=== PATIENT | female | born 1990 | race Caucasian/White ===

== ENCOUNTER → 2020-04-19 14:38 | Outpatient (BNVA) | payer OTHER, MEDICAID, SELFPAY | PROVIDERS: Family Provider Nurse Practitioner; PCP Nurse Practitioner Family; Visit Provider Obstetrics & Gynecology | DX: O09.521 Supervision of elderly multigravida, first trimester (principal); I10 Essential (primary) hypertension; R13.10 Dysphagia, unspecified | CPT/HCPCS: 80053; 80307; 84315; 84443; 85027; 86592; 86762; 86803; 86850; 86900; 87340 ==

== ENCOUNTER 2020-04-21 14:53 | Outpatient (CLI) | payer OTHER, MEDICAID, SELFPAY ==
[2020-04-21 15:18] LABS: Total Volume, Urine 1550 mL
[2020-04-21 15:55] LABS: Total Protein 24 Hour Urine 91.5 mg/24HR (0-150); Urine Total Protein 24 Hour 5.9 mg/dL (0-150)
== END 2020-04-21 14:54 | disposition home or self-care (01) ==
PROVIDERS: PCP Nurse Practitioner Family; Visit Provider Obstetrics & Gynecology
DX: I10 Essential (primary) hypertension (principal)
CPT/HCPCS: 84156

== ENCOUNTER → 2020-05-08 09:20 | Outpatient (BNVA) | payer OTHER, MEDICAID, SELFPAY | PROVIDERS: PCP Nurse Practitioner Family; Visit Provider Obstetrics & Gynecology | DX: O09.521 Supervision of elderly multigravida, first trimester (principal); O10.919 Unspecified pre-existing hypertension complicating pregnancy, unspecified trimester; O10.911 Unspecified pre-existing hypertension complicating pregnancy, first trimester; O99.611 Diseases of the digestive system complicating pregnancy, first trimester; K21.9 Gastro-esophageal reflux disease without esophagitis; O21.9 Vomiting of pregnancy, unspecified; Z3A.12 12 weeks gestation of pregnancy | CPT/HCPCS: 84315; 87491; 87591; 88175 ==

== ENCOUNTER → 2020-08-24 08:57 | Outpatient (BNVA) | payer OTHER, MEDICAID, SELFPAY | PROVIDERS: PCP Nurse Practitioner Family; Visit Provider Nurse Practitioner Women's Health | DX: Z34.90 Encounter for supervision of normal pregnancy, unspecified, unspecified trimester (principal) | CPT/HCPCS: 82950; 84315; 85027 ==

== ENCOUNTER → 2020-08-30 08:04 | Outpatient (BNVA) | payer OTHER, MEDICAID, SELFPAY | PROVIDERS: PCP Nurse Practitioner Family; Visit Provider Obstetrics & Gynecology | DX: R73.09 Other abnormal glucose (principal) | CPT/HCPCS: 82951; 82952 ==

== ENCOUNTER → 2020-09-06 13:16 | Outpatient (BNVA) | payer OTHER, MEDICAID, SELFPAY | PROVIDERS: PCP Nurse Practitioner Family; Visit Provider Obstetrics & Gynecology | DX: Z34.90 Encounter for supervision of normal pregnancy, unspecified, unspecified trimester (principal) | CPT/HCPCS: 81000 ==

== ENCOUNTER 2020-09-19 12:03 | Outpatient (CLI) | payer OTHER, MEDICAID, SELFPAY ==
[2020-09-19 12:19] VITALS: BP 155/80; PULSE 70
[2020-09-19 12:30] VITALS: BMI 36.3
[2020-09-19 12:35] VITALS: BP 144/84; PULSE 70
[2020-09-19 12:47] VITALS: RESP 16; TEMP 36.9
[2020-09-19 12:50] VITALS: BP 141/80; PULSE 69
--- NOTE | 2020-09-19 16:16 | P.PCN_ITS ---
Procedure/Consent Procedure Narrative: NONSTRESS TEST: Place of test: [facility] [place]-L&D Indication: Chronic hypertension Date and time of test: 09/19/2020, 12:24 PM Baseline: 135 Variability: Moderate Accelerations: Present Decelerations: None Tocometry: no Contractions INTERPRETATION: NST reactive , continue kick counts
--- NOTE | 2020-09-19 16:16 | PM.ACPR ---
Procedure/Consent Procedure Narrative: NONSTRESS TEST: Place of test: [facility] [place]-L&D Indication: Chronic hypertension Date and time of test: 09/19/2020, 12:24 PM Baseline: 135 Variability: Moderate Accelerations: Present Decelerations: None Tocometry: no Contractions INTERPRETATION: NST reactive , continue kick counts
== END 2020-09-19 12:56 | disposition home or self-care (01) ==
LOC: OPOB 12:10 → OBGYN 12:10
PROVIDERS: PCP Nurse Practitioner Family; Visit Provider Obstetrics & Gynecology
DX: O16.3 Unspecified maternal hypertension, third trimester (principal); Z3A.31 31 weeks gestation of pregnancy
CPT/HCPCS: 12345; 59025; 84315

== ENCOUNTER 2020-09-27 15:20 | Outpatient (CLI) | payer OTHER, MEDICAID, SELFPAY ==
[2020-09-27 15:20] VITALS: BMI 36.8
--- NOTE | 2020-09-27 15:25 | PM.ACPR ---
NST (Non-Stress Test) NST : 4 Para: 2,012 Due date: 11/15/20 Gestational age (weeks): 33 Indications: Chronic hypertension complicating in third trimester at 33-0/7 weeks gestation Test: NST Time: 15:28 Length of test in Minutes: 50 Contractions: Occasional Fetus Fetus 1: Baseline FHR BMP:: 130 Variability: Moderate Accelerations: Present Decelerations: None Reacticity: Reactive Interpretation/Plan Interpretation by: Wilfredo White Comments: Reactive NST with occasional contractions. Time Out Is a Time Out required?: No
== END 2020-09-27 16:20 | disposition home or self-care (01) ==
LOC: OPOB 15:26 → OBGYN 09-28 09:23
PROVIDERS: PCP Nurse Practitioner Family; Visit Provider Obstetrics & Gynecology
DX: O26.899 Other specified pregnancy related conditions, unspecified trimester (principal); Z3A.00 Weeks of gestation of pregnancy not specified
CPT/HCPCS: 12345; 59025

== ENCOUNTER 2020-10-04 17:00 | Outpatient (CLI) | payer OTHER, MEDICAID, SELFPAY ==
[2020-10-04] VITALS (14 sets, daily range): BP systolic 162–197; BP diastolic 84–100; PULSE 63–74; RESP 16; O2SAT 97–99; BMI 36.1
--- NOTE | 2020-10-04 17:25 | PM.ACPR ---
NST (Non-Stress Test) NST : 4 Para: 2,012 Due date: 11/15/20 Gestational age (weeks): 34 Indications: Chronic hypertension complicating in third trimester at 34-0/7 weeks gestation Test: NST Time: 17:28 Length of test in Minutes: 45 Contractions: None Fetus Fetus 1: Baseline FHR BMP:: 130 Variability: Moderate Accelerations: Present Decelerations: Variable Reacticity: Reactive Interpretation/Plan Interpretation by: Wilfredo White Comments: Reactive NST with variable deceleration. Biophysical profile was performed with total score of 10 out of 10 with reactive NST and CARRILLO of 14.6 cm. Time Out Is a Time Out required?: No
[2020-10-04] MEDS: dilTIAZem 30 mg Tablet PO (19:51)
[2020-10-04 20:07] LABS: UPRO/UCREAT Ratio 0.09 mg/mg CR; Urine Creatinine 117 mg/dL (28-217); Urine Protein Random 10 mg/dL
== END 2020-10-04 20:50 | disposition home or self-care (01) ==
LOC: OPOB 17:15 → OBGYN 17:16
PROVIDERS: PCP Nurse Practitioner Family; Visit Provider Obstetrics & Gynecology
DX: O16.9 Unspecified maternal hypertension, unspecified trimester (principal); Z3A.00 Weeks of gestation of pregnancy not specified
CPT/HCPCS: 12345; 59025; 82570; 84156; 84315; 99211

== ENCOUNTER 2020-10-08 09:27 | Outpatient (CLI) | payer OTHER, MEDICAID, SELFPAY ==
[2020-10-08 11:42] LABS: Total Protein 24 Hour Urine 89.9 mg/24HR (0-150); Total Volume, Urine 825 mL; Urine Total Protein 24 Hour 10.9 mg/dL (0-150)
== END 2020-10-08 09:28 | disposition home or self-care (01) ==
LOC: LAB 09:34
PROVIDERS: PCP Nurse Practitioner Family; Visit Provider Obstetrics & Gynecology
DX: O10.919 Unspecified pre-existing hypertension complicating pregnancy, unspecified trimester (principal)
CPT/HCPCS: 84156

== ENCOUNTER 2020-10-11 14:52 | Outpatient (CLI) | payer OTHER, MEDICAID, SELFPAY ==
[2020-10-11 15:07] VITALS: BP 145/71
[2020-10-11 15:22] VITALS: BP 146/68
[2020-10-11 15:34] VITALS: RESP 16; TEMP 37
[2020-10-11 15:42] VITALS: BMI 36.1
[2020-10-11 15:44] VITALS: BP 148/63
--- NOTE | 2020-10-11 16:42 | P.PCN_ITS ---
Procedure/Consent Procedure Narrative: NONSTRESS TEST: Place of test: [facility] [place]-L&D Indication: 29-year-old 4 para 2-0-1-2 at 35 weeks 0 days Date and time of test: 10/11/2020, 3:20 PM Baseline: 140 Variability: Moderate variability Accelerations: Accelerations present Decelerations: No decelerations Tocometry: Irritability present INTERPRETATION: NST reactive, correlate with BPP, continue kick counts
== END 2020-10-11 15:52 | disposition home or self-care (01) ==
LOC: OPOB 14:57 → OBGYN 10-13 08:50
PROVIDERS: PCP Nurse Practitioner Family; Visit Provider Obstetrics & Gynecology
DX: O16.9 Unspecified maternal hypertension, unspecified trimester (principal); Z3A.00 Weeks of gestation of pregnancy not specified
CPT/HCPCS: 12345; 59025; 84315

== ENCOUNTER → 2020-10-17 09:06 | Outpatient (BNVA) | payer OTHER, MEDICAID, SELFPAY | PROVIDERS: PCP Nurse Practitioner Family; Visit Provider Obstetrics & Gynecology | DX: Z34.90 Encounter for supervision of normal pregnancy, unspecified, unspecified trimester (principal) | CPT/HCPCS: 84315; 87081 ==

== ENCOUNTER 2020-10-23 10:54 | Outpatient (CLI) | payer OTHER, MEDICAID, SELFPAY ==
[2020-10-23 11:00] VITALS: BMI 37.0
[2020-10-23 11:24] VITALS: TEMP 36.3
--- NOTE | 2020-10-23 11:24 | US_ITS ---
WS: [id number] BIOPHYSICAL PROFILE HISTORY: chronic htn COMPARISON: 10/17/2020 Cardiac activity: 144 bpm. Cervix: closed. Placenta: Fundal, no previa or abruption. Placenta grade: 2 Parameters are as follows: Breathin Movement: 2 Tone: 2 Fluid volume: 2 Largest vertical pocket of amniotic fluid is 2.6 cm. US/US OB BPP wo NST 56993 IMPRESSION: 1. Biophysical profile score: 8/8. 2. Normal cardiac activity.
[2020-10-23 11:30] VITALS: RESP 18
[2020-10-23 11:31] VITALS: BP 161/73; PULSE 72
[2020-10-23 11:51] VITALS: BP 142/76; PULSE 72
[2020-10-23 12:11] VITALS: BP 136/75; PULSE 73
== END 2020-10-23 12:25 | disposition home or self-care (01) ==
LOC: OPOB 10:57 → OBGYN 11:09
PROVIDERS: PCP Nurse Practitioner Family; Visit Provider Obstetrics & Gynecology
DX: O16.9 Unspecified maternal hypertension, unspecified trimester (principal); Z3A.00 Weeks of gestation of pregnancy not specified
CPT/HCPCS: 59025; 76819; 84315; 99211

== ENCOUNTER → 2020-11-01 10:06 | Outpatient (BNVA) | payer MEDICAID, SELFPAY | PROVIDERS: PCP Nurse Practitioner Family; Visit Provider Obstetrics & Gynecology | DX: Z34.90 Encounter for supervision of normal pregnancy, unspecified, unspecified trimester (principal) | CPT/HCPCS: 80053; 82570; 84156; 84315; 84550; 85025 ==

== ENCOUNTER → 2020-11-03 08:27 | Outpatient (BNVA) | payer MEDICAID, SELFPAY | PROVIDERS: PCP Nurse Practitioner Family; Visit Provider Obstetrics & Gynecology | DX: O09.90 Supervision of high risk pregnancy, unspecified, unspecified trimester (principal); Z20.828 Contact with and (suspected) exposure to other viral communicable diseases | CPT/HCPCS: 87635 ==

== ENCOUNTER 2020-11-07 06:15 | Inpatient (IN) | payer MEDICAID, SELFPAY ==
[2020-11-07] VITALS (94 sets, daily range): BP systolic 122–218; BP diastolic 59–105; PULSE 60–164; TEMP 36.1–37.4; O2SAT 75–100; BMI 38.0
[2020-11-07 07:12] LABS: Eosinophils # 0.1 10^3/uL (0.0-0.8); Eosinophils % 1.4 %; Nucleated Red Blood Cells % 0 %
[2020-11-07 07:23] LABS: Add Urine Microscopic? NO
[2020-11-07] MEDS: oxytocin 30 UNIT/500 ML BAG IV (07:30)
[2020-11-07] MEDS: dextrose 5%-lactated ringers 1,000 ML 999 ML IV (07:30)
[2020-11-07 07:32] LABS: Basophils % 0.2 %; Hematocrit 34.4 % (37.0-47.0); Hemoglobin 11.4 g/dL (11.5-15.3); Lymphocytes # 1.7 10^3/uL (0.8-4.8); Lymphocytes % 20.9 %; Mean Corpuscular HGB Conc 33.1 g/dL (30.0-36.0); Mean Corpuscular Hemoglobin 29.5 pg (28.0-34.0); Mean Corpuscular Volume 89.1 fL (81-99); Monocytes # 0.8 10^3/uL (0.2-0.9); Neutrophils % 66.8 %; Platelet Count 178 10^3/cmm (130-400); Red Blood Count 3.86 10^6/uL (4.1-5.3); Red Cell Distribution Width 14.2 % (12.1-15.1); White Blood Count 8.1 10^3/uL (4.0-10.0)
[2020-11-07 07:33] LABS: Bilirubin Urine Neg (Negative); Blood Urine Neg (Negative); Glucose Urine UA Norm (Normal); Ketones Urine Negative (Negative); Leukocyte Esterase Urine Negative (Negative); Nitrate Urine Negative (Negative); Protein Urine Neg (Negative); Specific Gravity, Urine 1.005 (1.005-1.030); Urine Appearance Clear (CLEAR); Urine Color Yellow (Yellow); Urobilinogen Urine Norm (Negative); pH Urine 7 (5-7)
[2020-11-07 07:39] LABS: Alanine Aminotransferase 9 U/L (0-33); Albumin Level 3.4 g/dL (3.5-5.2); Alkaline Phosphatase 103 IU/L (35-105); Aspartate Amino Transferase 19 U/L (0-32); Blood Urea Nitrogen 7 mg/dL (6-20); Calcium 8.8 mg/dL (8.5-10.5); Carbon Dioxide 22 mmol/L (22-29); Chloride 105 mmol/L (98-107); Globulin 2.8 g/dL (1.3-4.6); Glomerular Filtration Rate 186.2 mL/min (90-130); Glucose 86 mg/dL (65-115); Osmolality Calculated 285 mOsm/kg (285-295); Sodium 139 mmol/L (136-145); Total Bilirubin 0.2 mg/dL (0.15-1.2); Total Protein 6.2 g/dL (6.6-8.7); Uric Acid 4.5 mg/dL (2.4-5.7)
[2020-11-07 07:47] LABS: Urine Creatinine 27 mg/dL (28-217); Urine Protein Random 4 mg/dL
[2020-11-07 08:04] LABS: UPRO/UCREAT Ratio 0.15 mg/mg CR
[2020-11-07] MEDS: labetalol 200 mg Tablet 100 MG PO ×2 (08:48→19:05)
[2020-11-07] MEDS: labetalol 5 mg/mL SDV 20mL 20 MG IVP ×3 (09:00→20:44)
[2020-11-07] MEDS: lactated ringers 1,000 ML 999 ML IV ×2 (10:38→11:50)
--- NOTE | 2020-11-07 12:53 | ANES.PREANE2 ---
Pre-Anesthetic Assessment Pre-Anesthetic Assessment: Height/Weight: Height 1.6 m Weight 97.522 kg Temp Pulse BP Pulse Ox 99.3 F 60 157/73 100 11/07/20 12:13 11/07/20 12:47 11/07/20 12:47 11/07/20 12:40 Was Beta Evin taken within 24 hours: Yes Social: Social History: No alcohol and No tobacco Exam: Pre-Anes Outpt Exam: alert, oriented x 3, clear to auscultation bilaterally and regular rate & rhythm Airway: Submandibular: WNL Cervical ROM: WNL MP: 2 Dentition: Full Anesthetic Plan: ASA status: 2 Other: Labor epidural Risk of > 500 ml blood loss (7ml/kg in children): No Meds/Allergies Current Medications: Current Medications Generic Name Dose Route Start Last Admin Trade Name Freq PRN Reason Stop Dose Admin Dextrose/Lactated Ringer's 1,000 mls @ 125 m ls/hr 11/07/20 06:45 11/07/20 10:38 Dextrose 5%-Lact ated Ringers IV 0 mls/hr .Q8H BRAULIO Infusion Lactated Ringer's 1,000 mls @ 999 m ls/hr 11/07/20 06:40 11/07/20 12:19 Lactated Ringers IV 125 mls/hr .Q1H1M PRN Infusion Per L&D Rescitati on Protocol Oxytocin 30 unit in 500 ml s @ 1 mls/hr 11/07/20 06:45 11/07/20 11:30 Pitocin IV 21 milliunit/min .Q24H BRAULIO 21 mls/hr Titration Protocol 1 MILLIUNIT/MIN Ropivacaine 200 mg in 100 mls @ 13 mls/hr 11/07/20 06:45 11/07/20 12:12 Naropin Premix EPIDURAL 13 mls/hr .Q7H42M BRAULIO Administration Lactated Ringer's 1,000 mls @ 999 m ls/hr 11/07/20 06:45 11/07/20 11:39 Lactated Ringers IV Infused .Q1H1M PRN Infusion See label comment s Labetalol HCl 20 mg 11/07/20 06:40 11/07/20 09:00 Labetalol 5 Mg/M l Sdv 20ml IVP 20 mg PRN PRN Administration HYPERTENSION Protocol Labetalol HCl 100 mg 11/07/20 09:00 11/07/20 08:48 Labetalol 200 Mg Tablet PO 100 mg BID BRAULIO Administration PFSH Anesthesia PFSH: Medical History Chronic hypertension Gestational hypertension with her second in 2018 which required labetalol for about 6 months . She states that her blood pressures returned to normal and she has not been on any medication since then-has not really been monitoring her blood pressure since then. No pertinent past medical history Patient denies any past medical history of diabetes, heart, lung, liver, kidney, thyroid, bleeding, or clotting problems. Surgical History History of tympanostomy tube placement As a child Family History Grandmother Diabetes Maternal Hyperlipidemia maternal Hypertension maternal Mother Anesthesia complication Breast cancer Diagnosed with breast cancer at the age of 38 in 1998. She later of leukemia in 2005 DVT (deep venous thrombosis) Her mother had a blood clot in her leg while on control pills and this was shortly before she was diagnosed with breast cancer. Hypertension Family/Other Hypertension Maternal uncle Denies family history of Cervical cancer Colon cancer Ovarian cancer Pulmonary embolism Uterine cancer Social History Smoking and tobacco status: never smoked Alcohol intake: never Marital status: Female Reproductive History: : 4 Data Anesthesia CBC & Chem 7: 11/07/20 06:50 11/07/20 06:50 Other Labs: Laboratory Results - last 48 hr 11/07/20 11/07/20 11/07/20 06:50 06:50 06:50 WBC 8.1 RBC 3.86 L Hgb 11.4 L Hct 34.4 L MCV 89.1 MCH 29.5 MCHC 33.1 RDW 14.2 Plt Count 178 MPV 11.0 H Neut % (Auto) 66.8 Lymph % (Auto) 20.9 [place] % (Auto) 10.0 Eos % (Auto) 1.4 Baso % (Auto) 0.2 Neut # (Auto) 5.40 Lymph # (Auto) 1.7 [place] # (Auto) 0.8 Eos # (Auto) 0.1 Baso # (Auto) 0.0 Nucleated RBC % (auto) 0 Nucleated RBCs # 0.0 Sodium 139 Potassium 4.0 Chloride 105 Carbon Dioxide 22 Anion Gap 16.0 BUN 7 Creatinine 0.4 L GFR Calculation 186.2 H Glucose 86 Calculated Osmolality 285 Uric Acid 4.5 Calcium 8.8 Total Bilirubin 0.2 AST 19 ALT 9 Alkaline Phosphatase 103 Total Protein 6.2 L Albumin 3.4 L Globulin 2.8 Urine Color Urine Appearance Urine pH Ur Specific Freeman Urine Protein Urine Glucose (UA) Urine Ketones Urine Blood Urine Nitrate Urine Bilirubin Urine Urobilinogen Ur Leukocyte Esterase U Random Total Protein 4 Urine Creatinine 27 L Protein/Creatinin Ratio 0.15 11/07/20 06:50 WBC RBC Hgb Hct MCV MCH MCHC RDW Plt Count MPV Neut % (Auto) Lymph % (Auto) [place] % (Auto) Eos % (Auto) Baso % (Auto) Neut # (Auto) Lymph # (Auto) [place] # (Auto) Eos # (Auto) Baso # (Auto) Nucleated RBC % (auto) Nucleated RBCs # Sodium Potassium Chloride Carbon Dioxide Anion Gap BUN Creatinine GFR Calculation Glucose Calculated Osmolality Uric Acid Calcium Total Bilirubin AST ALT Alkaline Phosphatase Total Protein Albumin Globulin Urine Color Yellow Urine Appearance Clear Urine pH 7 Ur Specific Freeman 1.005 Urine Protein Neg Urine Glucose (UA) Norm Urine Ketones Negative Urine Blood Neg Urine Nitrate Negative Urine Bilirubin Neg Urine Urobilinogen Norm Ur Leukocyte Esterase Negative U Random Total Protein Urine Creatinine Protein/Creatinin Ratio Cardiac Studies: No Data to Display
--- NOTE | 2020-11-07 12:55 | ANES.PROC ---
Anesthesia Procedures Procedure/Date: 11/07/20 Epidural: Time Out Performed: Yes Consents Signed: Procedure Consent Consent: requested by attending/covering physician, from patient and risks and benefits reviewed Lumbar Level: L3-L4 Epidural position: sitting Epidural procedure: sterile prep of area, 1% lidocaine to numb the area, 18 g needle, negative for paresthesia passed, test dose given, 1.5% xylocaine 1:200k epi, placed PCEA, no systemic response, sterile dressing applied and 0.2% Ropiavacaine @ mls/hr (13) Additional Comments: CARL at 7cm cath at 12cm.
[2020-11-07] MEDS: dextrose 5%-lactated ringers 1,000 ML 125 ML IV (19:51)
--- NOTE | 2020-11-07 23:33 | P.PCNOB_ITS ---
Delivery Note: Date of delivery: November 07, 2020 Pre-delivery diagnoses: 1. Chronic hypertension complicating in third trimester 2. at 38-6/7 weeks gestation Post-delivery diagnoses: 1. Maternal Arrest with 2. Chronic hypertension complicating in third trimester 3. at 38-67 weeks gestation 4. Viable female infant. Procedure: Spontaneous vaginal delivery Op report anesthesia: Epidural Delivering Physician: Wilfredo White MD Estimated blood loss (mL): 0 Pre-Delivery Course: Patient is a 30-year-old 4, para 2-0-1-2 with an LMP of 04/05/2020 and an EDC of 11/15/2020 based on 8-week ultrasound, which placed her at 38-6/7 weeks gestation. She presented to labor and delivery this morning for scheduled induction of labor due to chronic hypertension. She was evaluated for possible preeclampsia and ruled out. She was 40% effaced and 2 cm dilated at -3 station on presentation. She was started on Pitocin this morning. She was continued on 3 Pitocin through the day. At 13:59 she was 50% effaced and 5 cm dilated at -2 station. Artificial rupture membranes was performed at that time with clear fluid present. She was continued on Pitocin. At 15:31 she was noted to be 6 cm dilated. She did not make any further cervical change until approximately 20:00 when she was found to be 8 cm dilated. She then progressed to complete dilation by 21:48. Blood pressure was managed on her scheduled oral labetalol and then intermittent doses of IV labetalol. Baby was reassuring during the labor course. She had had epidural placed earlier in the day. Delivery: Patient started pushing at 21:57 and delivered at 22:01 as a spontaneous vaginal delivery of an occiput anterior female over an intact perineum under epidural anesthesia. Following delivery of the 's head, no nuchal cords were noted. The right hand was delivering adjacent to the left cheek. The arm was swept out. The rest the baby delivered atraumatically with the right arm anterior. was placed on the mother's abdomen where the cord was clamped and then cut by the father of the baby. Baby was spontaneously crying and was left in the care of the waiting nurses. Pitocin bolus was started. Placenta delivered intact by simple expression at 22:05. As the placenta was delivering, patient reported feeling lightheaded. Almost immediately after delivery of the placenta, patient became unresponsive. At that time she was breathing and heartbeat was present. However, respirations became more shallow and rapid response team was called. Patient had been placed on non-rebreather mask oxygen. Pulse ox was placed. On their arrival, she was having agonal breathing. Code was then managed by the code team. Please see their notes. was eventually called. Suspected cause of was amniotic fluid embolism. FINDINGS 1. Viable female infant with APGARS of 9 at 1 minute and 9 at 5 minutes. 2. 3 vessel cord with no nuchal cord. 3. Normal appearing placenta. Post-Delivery Status: Maternal from suspected amniotic fluid embolism. Infant was in satisfactory condition. Coding Level of Care Code Acute Circular Knitter for Marybeth Brown
--- NOTE | 2020-11-07 23:35 | PM.CCN ---
Critical Care Event Note Critical Care Event Rapid response was called during Mrs. Salinas's delivery of a healthy girl, Miguel Garcia. From information shared with me, she was in the process of delivering the placenta. She was talking and then suddenly said that she was feeling lightheaded and then became unresponsive. No seizure activity was noted. She had been hypertensive previously but this was a known diagnosis for her throughout her . Rapid response was initiated at 2207. I arrived shortly thereafter. Patient initially had sinus tachycardia and hypotension. She had agonal breathing and very pale skin and mucosa. Oxytocin was stopped and fluids were administered. Pulse was subsequently lost and chest compressions were initiated as was bag mask ventilation. She received a dose of epi with return of spontaneous circulation after 1 round of CPR. Sinus tach in the 110s-130s. Blood pressure was 203/105. She was put on a nonrebreather. She was initially moaning but not making direct eye contact or responding to simple commands. She was moving around a bit. Blood sugar was checked and was 78. Heart rate suddenly dropped to rate around 60 then 30, with oxygen saturation around 80% and precipitously dropping blood pressures. She became asystolic and CPR was initiated again. Suspecting amniotic fluid embolus, she had received atropine, Toradol and Zofran. She was intubated. Additional epinephrine was given. After 5 total rounds of epinephrine and high-quality CPR patient remained in asystole. Ultrasound imaging of the heart showed minimal cardiac wall movement. She received an additional few rounds of epinephrine and high-quality CPR. Subsequent ultrasound imaging showed no heart wall movement. During this timeframe I was speaking with Mrs. Salinas's , Matt, updating him on what was going on. Explained that we had not had a pulse for more than 15 minutes and that it was strongly suspected that this was a rare event called amniotic fluid embolism or possibly pulmonary embolism. Understandably I am not sure how much of this he understood, but he was aware of the gravity of the situation. I did further explain that the other doctor in the room was continuing to treat his but that it was becoming less and less likely that she would survive, and if she did she would probably have significant neurological damage related to prolonged resuscitative efforts. Matt was brought into the room and shortly after patient was pronounced at [address] Morley. Autopsy has been requested by Dr. White and myself. Mr. Salinas did consent to this and arrangements have subsequently been made. Cause of at this point in time is felt to be amniotic fluid embolism. Miguel's Apgars were 9 and 9 at 1 and 5 minutes. She had a three-vessel cord. Per ENVIRONMENTAL DIRECTOR, placenta was normal-appearing. Critical Care Time Critical Care Time: Code activated: Yes Critical Care Time (min): 35 Coding Level of Care Code Acute Light Rail Train Operator for Chg Fwd Diagnoses Amniotic fluid embolism in childbirth O88.12 Single live Z37.0 Chronic hypertension affecting O10.919 Pronouncement Note Date and Time of Date of : 11/07/20 Time of : 22:44 Preliminary cause of : Amniotic fluid embolism in childbirth Diagnoses/Contributing Factors (1) Amniotic fluid embolism in childbirth: (2) Single live : (3) Chronic hypertension affecting : Additional Data Confirmation of : no pulse, no respirations, no heart sounds and pupils fixed and dilated Family: at bedside Additional persons at bedside: nursing staff Attending physician: Jaylan Donovan MD Attending/PCP notified?: Attending notified Was code activated?: Yes Autopsy requested?: Yes Advance directives?: No Hospice patient?: No
--- NOTE | 2020-11-08 | ED_ITS ---
HPI - Related Data: : [facility] PFSH: Medical History Chronic hypertension Gestational hypertension with her second in 2018 which required labetalol for about 6 months . She states that her blood pressures returned to normal and she has not been on any medication since then-has not really been monitoring her blood pressure since then. No pertinent past medical history Patient denies any past medical history of diabetes, heart, lung, liver, kidney, thyroid, bleeding, or clotting problems. Surgical History History of tympanostomy tube placement As a child Family History Grandmother Diabetes Maternal Hyperlipidemia maternal Hypertension maternal Mother Anesthesia complication Breast cancer Diagnosed with breast cancer at the age of 38 in 1998. She later of leukemia in 2005 DVT (deep venous thrombosis) Her mother had a blood clot in her leg while on control pills and this was shortly before she was diagnosed with breast cancer. Hypertension Family/Other Hypertension Maternal uncle Denies family history of Cervical cancer Colon cancer Ovarian cancer Pulmonary embolism Uterine cancer Social History Smoking and tobacco status: never smoked Alcohol intake: never Marital status: Female Reproductive History: : 4 Procedures Intubation sedative: Etomidate Mg Given: 20 paralytic: Vecuronium Mg Given: 20 Laryngoscope: Montrell ET Tube Size: 8 Tube Secured Depth (cm): 24 Tube Secured Location: teeth Tube Placement Confirmation: visualized tube passing through cords, equal breath sounds bilaterally, no breath sounds over epigastrium and confirmation by capnometry Patient Tolerated Procedure: well Intubation Complications: none Course Vital Signs: Vital signs: Vital Signs Temperature 97.2 F L 11/07/20 21:53 Pulse Rate 131 H 11/07/20 22:37 Blood Pressure 218/93 11/07/20 22:34 Pulse Oximetry 75 L 11/07/20 22:37 MDM - OB/Uterine Contractions MDM Narrative: Medical decision making narrative: I was called over OB after rapid response. Arrived patient had thready pulses and agonal breaths. She then proceeded to code. I did intubate patient without any difficulties with intubation. Lab Data: Labs: Lab Results 11/07/20 11/07/20 11/07/20 Range/Units 06:50 06:50 06:50 WBC 8.1 (4.0-10.0) 10^3/ uL RBC 3.86 L (4.1-5.3) 10^6/u L Hgb 11.4 L (11.5-15.3) g/dL Hct 34.4 L (37.0-47.0) % MCV 89.1 (81-99) fL MCH 29.5 (28.0-34.0) pg MCHC 33.1 (30.0-36.0) g/dL RDW 14.2 (12.1-15.1) % Plt Count 178 (130-400) 10^3/c mm MPV 11.0 H (7.4-10.4) fL Neut % (Auto) 66.8 % Lymph % (Auto) 20.9 % [place] % (Auto) 10.0 % Eos % (Auto) 1.4 % Baso % (Auto) 0.2 % Neut # (Auto) 5.40 (1.8-7.7) 10^3/u L Lymph # (Auto) 1.7 (0.8-4.8) 10^3/u L [place] # (Auto) 0.8 (0.2-0.9) 10^3/u L Eos # (Auto) 0.1 (0.0-0.8) 10^3/u L Baso # (Auto) 0.0 (0.0-0.1) 10^3/u L Nucleated RBC % (a uto) 0 % Nucleated RBCs # 0.0 /100WBC Sodium 139 (136-145) mmol/L Potassium 4.0 (3.5-5.1) mmol/L Chloride 105 (98-107) mmol/L Carbon Dioxide 22 (22-29) mmol/L Anion Gap 16.0 (5-19) BUN 7 (6-20) mg/dL Creatinine 0.4 L (0.5-0.9) mg/dL GFR Calculation 186.2 H (90-130) mL/min Glucose 86 (65-115) mg/dL Calculated Osmolal ity 285 (285-295) mOsm/k g Uric Acid 4.5 (2.4-5.7) mg/dL Calcium 8.8 (8.5-10.5) mg/dL Total Bilirubin 0.2 (0.15-1.2) mg/dL AST 19 (0-32) U/L ALT 9 (0-33) U/L Alkaline Phosphata se 103 (35-105) IU/L Total Protein 6.2 L (6.6-8.7) g/dL Albumin 3.4 L (3.5-5.2) g/dL Globulin 2.8 (1.3-4.6) g/dL Urine Color (Yellow) Urine Appearance (CLEAR) Urine pH (5-7) Ur Specific Gravit y (1.005-1.030) Urine Protein (Negative) Urine Glucose (UA) (Normal) Urine Ketones (Negative) Urine Blood (Negative) Urine Nitrate (Negative) Urine Bilirubin (Negative) Urine Urobilinogen (Negative) mg/dL Ur Leukocyte Pooja ase (Negative) U Random Total Pro tein 4 mg/dL Urine Creatinine 27 L (28-217) mg/dL Protein/Creatinin Ratio 0.15 mg/mg CR 11/07/20 Range/Units 06:50 WBC (4.0-10.0) 10^3/ uL RBC (4.1-5.3) 10^6/u L Hgb (11.5-15.3) g/dL Hct (37.0-47.0) % MCV (81-99) fL MCH (28.0-34.0) pg MCHC (30.0-36.0) g/dL RDW (12.1-15.1) % Plt Count (130-400) 10^3/c mm MPV (7.4-10.4) fL Neut % (Auto) % Lymph % (Auto) % [place] % (Auto) % Eos % (Auto) % Baso % (Auto) % Neut # (Auto) (1.8-7.7) 10^3/u L Lymph # (Auto) (0.8-4.8) 10^3/u L [place] # (Auto) (0.2-0.9) 10^3/u L Eos # (Auto) (0.0-0.8) 10^3/u L Baso # (Auto) (0.0-0.1) 10^3/u L Nucleated RBC % (a uto) % Nucleated RBCs # /100WBC Sodium (136-145) mmol/L Potassium (3.5-5.1) mmol/L Chloride (98-107) mmol/L Carbon Dioxide (22-29) mmol/L Anion Gap (5-19) BUN (6-20) mg/dL Creatinine (0.5-0.9) mg/dL GFR Calculation (90-130) mL/min Glucose (65-115) mg/dL Calculated Osmolal ity (285-295) mOsm/k g Uric Acid (2.4-5.7) mg/dL Calcium (8.5-10.5) mg/dL Total Bilirubin (0.15-1.2) mg/dL AST (0-32) U/L ALT (0-33) U/L Alkaline Phosphata se (35-105) IU/L Total Protein (6.6-8.7) g/dL Albumin (3.5-5.2) g/dL Globulin (1.3-4.6) g/dL Urine Color Yellow (Yellow) Urine Appearance Clear (CLEAR) Urine pH 7 (5-7) Ur Specific Gravit y 1.005 (1.005-1.030) Urine Protein Neg (Negative) Urine Glucose (UA) Norm (Normal) Urine Ketones Negative (Negative) Urine Blood Neg (Negative) Urine Nitrate Negative (Negative) Urine Bilirubin Neg (Negative) Urine Urobilinogen Norm (Negative) mg/dL Ur Leukocyte Opoja ase Negative (Negative) U Random Total Pro tein mg/dL Urine Creatinine (28-217) mg/dL Protein/Creatinin Ratio mg/mg CR Discharge Plan Discharge Prescriptions: No Action docusate sodium [Colace] 100 mg capsule 100 mg PO DAILY RF: 0 acetaminophen [Tylenol] 325 mg capsule 325 mg PO QID PRN (Reason: Pain) RF: 0 Gummies 400 mcg-35 mg- 25 mg-5 mg tablet,chewable 1 tab PO BID RF: 0 aspirin 81 mg tablet,delayed release (DR/EC) 81 mg PO DAILY Qty: 90 RF: 2 pantoprazole [Protonix] 40 mg tablet,delayed release (DR/EC) 40 mg PO QDAY Qty: 30 RF: 8 ferrous sulfate 325 mg (65 mg iron) tablet 325 mg PO BID RF: 0 calcium carbonate [Tums] 300 mg (750 mg) tablet,chewable 300 mg PO BID PRN (Reason: Heartburn) RF: 0 labetalol 100 mg tablet 100 mg PO BID Qty: 60 RF: 0 Coding Level of Care Code ED Vice President Of Development for Marybeth Brown
--- NOTE | 2020-11-08 03:33 | PC.NURSE ---
2206 - heart rate 67 O2 97% room air 220 - O2 72% rapid response called, non rebreather at 10L/min 220 - General Internist And Physician Leader and code team arrived in room, patient with agonal respirations. 220 - Heart rate 120 weak and thready 2210 - RT reports no pulse and chest compressions initiated. 2212 - compressions paused for pulse check, no pulse detected, compressions resumed. 2213 - Pitocin bolus stopped, Zoll placed on chest, second IV line 18g IV started in right hand, 1 attempt, 1mg epi given, heart rate 72 2214 - Heart rate 114 2215 - compressions paused for rhythm check, heart rate 130 in sinus tachycardia, fluid bolus of LR initiated. automatic blood pressure reading of 203/105, unable to obtain O2 saturation via pulse ox, patient moaning and moving arms. 2216 - bedside blood glucose of 78. 2218 - non-rebreather placed back on patient, O2 80%, heart rate 64, sinus rhythm. 221 - SPO2 80%, atropine 1mg IVP, Ondansetron 4mg IVP, ketorolac 30mg IVP 2220 - heart rate 150 2223 - manual blood pressure 88/58 2224 - Push dose of epi given - 0.1mg epi in 10ml flush 2225 - unable to obtain pulse, compressions initiated, 1mg epi IVP SPO2 68% 2226 - Etomidate 20mg IVP, Vecuronium 10mg IVP, patient intubated by Dr. Morley 2228 - Compressions paused for pulse check, no pulse detected via palpation or doppler, 1mg epi IVP, SPO2 81% compressions resumed 222 - SPO2 83% 2230 - compressions paused for pulse check, no pulse detected via palpation or doppler, compressions resumed. 2231 - 1mg epi IVP 223 - compressions paused for voip technician at bedside, no cardiac movement detected, 1mg epi given IVP, asystole noted on monitor, compressions resumed. 223 - compressions paused for voip technician at bedside, no cardiac movement detected, 1mg epi given IVP, asystole noted on monitor, compressions resumed. 224 - compressions paused for pulse check, no pulse detected via palpation or doppler, 1mg epi IVP, compressions resumed. 224 - compressions paused for voip technician at bedside, no cardiac movement detected, asystole noted on monitor, compressions resumed. 2243 - compressions paused for pulse check, no pulse detected via palpation or doppler, Dr. Morley calls time of .
--- NOTE | 2020-11-08 08:44 | PC.SOCIAL ---
Spoke with receptionist clerk to see if now would be a good time for Marito our [employer] social worker to visit with . Was told now is probably not a good time. Gave my phone number to call when they feel Marito can visit with Spouse.
--- NOTE | 2020-11-08 11:03 | PC.CHAP ---
Pastoral Care Encounter/Spiritual Assessment Type of Contact [] Declined advertising production manager visit [] Patient/Family/Request visit [] Outpatient visit [] Follow-up visit [] Physician referral [] Code/Alert [] Routine visit [] Staff referral [] Actively dying [] Patient sleeping [x] Family support [x] [] Out of room [] Palliative care [] [] Receiving care in room [] Pre-surgical visit [] Trauma [] Long length of stay [] ICU visit [] Other: Patient , checking on family. Relational/Emotional Strength [] Patient feels connected with others/family/visitors/staff [] Distress [] Loneliness/isolation [] Abandonment Spirituality of Patient [] Person of Jessica [] Attends Religious of their Jessica [] Believes in Prayer [] Reads Bible or Gnosticism materials [] There are Spiritual issues to be addressed Campus Executive Director Interventions [x] Prayer [x] Active listening [x] Non-anxious presence [x] Spiritual/emotional support [x] Crisis/trauma care [] Spiritual counseling [x] Bereavement support [] Provided bereavement packet [] Provided Bible/devotional materials [] Provided toy/stuffed animal, coloring book to patient or family member [] Provided Communion [] Anointing/[place] [] Salvation [] Completed spiritual assessment [] Other: Impact on Illness or Injury [] Angry [] Fearful [] Anxious [] Often cries [] Exhaustion [] Unable to work [] Unable to attend zoroastrian [] Unable to walk/stand [] Unable to read [] Unable to drive [] Unable to eat/drink [] Unable to sleep [] Unable to be with family [] Patient intubated [] Other: Summary Campus Executive Director checked on patient's family, not present but will return later today. several family members gathered in room to support new born and patient's . Family expressed gratitude to chaplains that ministered to them last night. ( R[place] ) Family said they were amazing and very helpful. Family asphalt blender was called and was present for several hours with family. Campus Executive Director expressed his deepest condolences and inquired if family needed anything, nothing at this time. Campus Executive Director prayed with family. Time spent with patient 15 min
--- NOTE | 2020-11-08 11:21 | PC.CHAP ---
Pastoral Care Encounter/Spiritual Assessment Type of Contact [] Declined structural steel ironworker visit [] Patient/Family/Request visit [] Outpatient visit [] Follow-up visit [] Physician referral [] Code/Alert [] Routine visit [] Staff referral [] Actively dying [] Patient sleeping [x] Family support [x] [] Out of room [] Palliative care [] [] Receiving care in room [] Pre-surgical visit [x] Trauma [] Long length of stay [] ICU visit [x] Other: called in to support family. Relational/Emotional Strength [] Patient feels connected with others/family/visitors/staff [] Distress [] Loneliness/isolation [] Abandonment Spirituality of Patient [] Person of Jessica [] Attends Muslim of their Jessica [] Believes in Prayer [] Reads Bible or Worship materials [] There are Spiritual issues to be addressed [employer] Interventions [x] Prayer [x] Active listening [x] Non-anxious presence [x] Spiritual/emotional support [x] Crisis/trauma care [x] Spiritual counseling [x] Bereavement support [] Provided bereavement packet [] Provided Bible/devotional materials [] Provided toy/stuffed animal, coloring book to patient or family member [] Provided Communion [] Anointing/[place] [] Salvation [] Completed spiritual assessment [] Other: Impact on Illness or Injury [] Angry [] Fearful [] Anxious [] Often cries [] Exhaustion [] Unable to work [] Unable to attend roman catholic [] Unable to walk/stand [] Unable to read [] Unable to drive [] Unable to eat/drink [] Unable to sleep [] Unable to be with family [] Patient intubated [] Other: Summary Chaplains (2) arrived around 10:30. Patients was in lobby and was just being informed of his 's passing. He appeared to be in shock. Family was notified and began arriving at hospital. Chaplains provided support to family. Chaplains escorted the family and remain present as family said good bye to patient. Family members held the new born as her father grieved. Chaplains remain present to support family until family coyote hunter arrived. [employer] gathered the family in lobby and prayed for family and new baby. Family was emotional but very appreciative of structural steel ironworker's presence. Time spent with patient 150 min
== END 2020-11-07 22:44 | disposition expired | DRG 805 ==
PROVIDERS: Admitting Provider Obstetrics & Gynecology; PCP Nurse Practitioner Family; Visit Provider Obstetrics & Gynecology
DX: O10.02 Pre-existing essential hypertension complicating childbirth (principal); O88 Obstetric embolism; Z37.0 Single live birth; O75.4 Other complications of obstetric surgery and procedures; O26.53 Maternal hypotension syndrome, third trimester; I46.9 Cardiac arrest, cause unspecified; Z3A.38 38 weeks gestation of pregnancy; O75.89 Other specified complications of labor and delivery; K21.9 Gastro-esophageal reflux disease without esophagitis; Z79.82 Long term (current) use of aspirin
CPT/HCPCS: 12345; 36415; 51702; 59409; 80053; 81003; 82570; 84156; 84550; 85025; 88307; 92950; 96374; 96375; J0171; J2795; J3490